=== PATIENT | male | born 1970 | race Caucasian/White ===

== ENCOUNTER 2024-01-02 02:26 | Emergency (ER) | payer MEDICAID ==
[~2024-01-02] VITALS: Ht 165.1 cm; Wt 72.6 kg
[2024-01-02] MEDS ORDERED: KETOROLAC TROMETHAMINE INJ 30 MG/ML VIAL ONE (02:57)
[2024-01-02] MEDS ORDERED: ACETAMINOPHEN ES 500 MG TABLET ONE (02:58)
[2024-01-02] MEDS: KETOROLAC TROMETHAMINE INJ 30 MG/ML VIAL IM ONE (03:08)
[2024-01-02] MEDS: ACETAMINOPHEN ES 500 MG TABLET PO ONE (03:08)
[2024-01-02] MEDS ORDERED: KETO10TA2 PO (04:36)
[2024-01-02] MEDS ORDERED: ACET-2030 PO (04:36)
[2024-01-02 04:41] VITALS: BP 134/81; TEMP 98.2; O2SAT 100
== END 2024-01-02 04:42 | disposition home or self-care (01) ==
LOC: ER 02:30
DX: S60.031A Contusion of right middle finger without damage to nail, initial encounter (principal); S60.041A Contusion of right ring finger without damage to nail, initial encounter; W22.8XXA Striking against or struck by other objects, initial encounter; Y93.89 Activity, other specified; Y92.89 Other specified places as the place of occurrence of the external cause; Y99.8 Other external cause status
CPT/HCPCS: 99284; 96372; 73120; 73140; J1885